=== PATIENT | male | born 1985 | race Two or more races ===

== ENCOUNTER 2021-04-23 21:02 | Emergency (ER) | payer SELFPAY ==
[~2021-04-23] VITALS: Ht 182.9 cm; Wt 104.0 kg
[2021-04-23 21:06] VITALS: BP 130/86
== END 2021-04-24 00:26 | disposition left against medical advice (07) ==
LOC: ER 21:02
DX: Z53.21 Procedure and treatment not carried out due to patient leaving prior to being seen by health care provider (principal); Z88.8 Allergy status to other drugs, medicaments and biological substances